=== PATIENT | female | born 1935 | race Two or more races ===

== ENCOUNTER → 2018-10-18 | Emergency (ER) | payer OTHER ==
[~2018-10-18] VITALS: Ht 157.5 cm; Wt 49.9 kg
[~2018-10-18] MED LIST: ARICEPT5 MG; COZAAR25 MG; DITROPAN5 MG; HYZAAR 100-121 UDTAB; HYZAAR 100-121 UDTAB PO; INTESTINEX1 CA1 PO; LIPITOR20 MG PO; Neurontin PO; PREVACID15 MG
== END | disposition home or self-care (01) ==
LOC: ER 19:04
DX: M54.31 Sciatica, right side (principal)

== ENCOUNTER 2023-04-14 21:58 | Inpatient (IN) | payer OTHER ==
[~2023-04-14] VITALS: Ht 129.5 cm; Wt 86.2 kg
[2023-04-14] MEDS ORDERED: LOSARTAN POTAS100 MG PO (22:23)
[2023-04-14] MEDS ORDERED: ARICEPT5 MG PO (22:24)
[2023-04-14] MEDS ORDERED: HYDROCHLOROTH12.5 MG PO (22:24)
[2023-04-14] MEDS ORDERED: MEMANTINE HCL E14 MG PO (22:24)
[2023-04-14] MEDS ORDERED: PROBIOTIC1 EAC2 (22:25)
[2023-04-14] MEDS ORDERED: LIPITOR20 MG PO (22:25)
[2023-04-14] MEDS ORDERED: NEURONTIN300 MG (22:25)
--- NOTE | 2023-04-14 22:26 | NUR ---
SE RECIBE PTE ALERTA Y ORIENTADA X3. SE OBSERVA A PTE CON ROBERT POR DIAGNOSTICO DE VEJIGA NEUROGENICA. FAMILIAR REFIERE QUE DESDE EL JUEVES PTE CRAIN TENIDO HECES DE COLOR NEGRAS Y CON MUY MAL OLOR, TOS PRODUCTIVA CON ESPUTO CON DWAIN. SE MONITOREAN S/V Y SE UBICA EN JOSE EDUARDO DE OBSERVACION.
--- NOTE | 2023-04-15 00:10 | NUR ---
SE ORIENTA PTE SOBRE TX A SEGUIR, LA MISMA REFIERE ENTENDER. SE PETRA MUESTRAS DE LAB, SE CANALIZA Y SE ADMINISTRA MEDS ARMANI ORDEN MEDICA. PEND U/A Y OCULT BLOOD
--- NOTE | 2023-04-15 07:24 | NUR ---
SE RECIBE PTE ALERTA Y ORIETNADO POR 3 EN COMPANIA DE YOUNGER FAMILIRA PTE UBICADA EN CAMA CON BRANDAS ELEVADA TIEMBRE ACCESIBLE, NO PRESENTA DOLOR NI SANGRADO AL MOMENTO, SE OBSERVA VENOPUNCION PATENTE Y CHRISTIN DE EDEMA, PTE SE MANTIENE EN OBSERVACION Y BAJO TRATAMIENTO EN ESEPERA DEL DE NETTE GUIDO.
[2023-04-20] MEDS ORDERED: GABAPENTIN300 MG PO (16:21)
[2023-04-20] MEDS ORDERED: PYRIDOXINE HCL100 MG PO (16:21)
[2023-04-20] MEDS ORDERED: FOLIC ACID1 MG PO (16:21)
[2023-04-20] MEDS ORDERED: LIPITOR20 MG PO (16:21)
[2023-04-20] MEDS ORDERED: Neurin-Sl Tablet Sl SL (16:21)
[2023-04-20] MEDS ORDERED: POM (MEDICAMENTO EN PO (16:21)
[2023-04-20] MEDS ORDERED: ARICEPT5 MG PO (16:21)
[2023-04-20] MEDS ORDERED: INTEGRA PLUS C1 EACH PO (16:21)
[2023-04-20] MEDS ORDERED: PROTONIX40 MG PO (16:21)
== END 2023-04-21 06:54 | disposition home or self-care (01) | DRG 378 ==
LOC: ER 21:58 → MEDJ 04-15 15:28
PROVIDERS: ADMIT Internal Medicine; ATTEND Internal Medicine
PROC: 0DJ08ZZ Inspection of Upper Intestinal Tract, Via Natural or Artificial Opening Endoscopic (ICD-10-PCS; principal; 2023-04-18)
PROC: 30233N1 Transfusion of Nonautologous Red Blood Cells into Peripheral Vein, Percutaneous Approach (ICD-10-PCS; 2023-04-19)
DX: K92.1 Melena (principal); N17.8 Other acute kidney failure; N39.0 Urinary tract infection, site not specified; K21.00 Gastro-esophageal reflux disease with esophagitis, without bleeding; K44.9 Diaphragmatic hernia without obstruction or gangrene; K26.9 Duodenal ulcer, unspecified as acute or chronic, without hemorrhage or perforation; K29.80 Duodenitis without bleeding; D64.89 Other specified anemias; E86.0 Dehydration; I10 Essential (primary) hypertension; N31.8 Other neuromuscular dysfunction of bladder; G30.0 Alzheimer's disease with early onset; F02.80 Dementia in other diseases classified elsewhere, unspecified severity, without behavioral disturbance, psychotic disturbance, mood disturbance, and anxiety

== ENCOUNTER 2023-04-25 11:49 | Inpatient (IN) | payer OTHER ==
[~2023-04-25] VITALS: Ht 152.4 cm; Wt 83.9 kg
[~2023-04-25 11:49] MED LIST changes: +ARICEPT5 MG PO; +FOLIC ACID1 MG PO; +GABAPENTIN300 MG PO; +HYDROCHLOROTH12.5 MG PO; +INTEGRA PLUS C1 EACH PO; +LOSARTAN POTAS100 MG PO; +MEMANTINE HCL E14 MG PO; +NEURONTIN300 MG; +Neurin-Sl Tablet Sl SL; +POM (MEDICAMENTO EN PO; +PROBIOTIC1 EAC2; +PROTONIX40 MG PO; +PYRIDOXINE HCL100 MG PO
[2023-05-07] MEDS ORDERED: DULCOLAX5 MG PO (16:47)
[2023-05-07] MEDS ORDERED: INTESTINEX680 M1 PO (16:47)
[2023-05-07] MEDS ORDERED: PANTOPRAZOLE SO40 MG PO (16:47)
[2023-05-07] MEDS ORDERED: ELIQUIS2.5 MG PO (16:47)
== END 2023-05-07 17:55 | disposition home or self-care (01) | DRG 871 ==
LOC: ER 11:49 → MEDJ 19:00 → ICU-2 19:00 → ICU 04-26 02:17 → MEDJ 04-30 20:47
PROVIDERS: General Practice; Internal Medicine; Internal Medicine Hematology & Oncology; ADMIT Internal Medicine; ATTEND Internal Medicine
PROC: BW24ZZZ Computerized Tomography (CT Scan) of Chest and Abdomen (ICD-10-PCS; 2023-04-25)
PROC: BW21ZZZ Computerized Tomography (CT Scan) of Abdomen and Pelvis (ICD-10-PCS; 2023-04-25)
PROC: B24BZZZ Ultrasonography of Heart with Aorta (ICD-10-PCS; 2023-04-25)
PROC: 02HV33Z Insertion of Infusion Device into Superior Vena Cava, Percutaneous Approach (ICD-10-PCS; 2023-04-26)
PROC: 0W993ZZ Drainage of Right Pleural Cavity, Percutaneous Approach (ICD-10-PCS; principal; 2023-04-27)
PROC: BW24YZZ Computerized Tomography (CT Scan) of Chest and Abdomen using Other Contrast (ICD-10-PCS; 2023-04-27)
PROC: B54DZZZ Ultrasonography of Bilateral Lower Extremity Veins (ICD-10-PCS; 2023-04-28)
PROC: 4A12X4Z Monitoring of Cardiac Electrical Activity, External Approach (ICD-10-PCS; 2023-04-30)
DX: A41.9 Sepsis, unspecified organism (principal); I26.99 Other pulmonary embolism without acute cor pulmonale; J18.9 Pneumonia, unspecified organism; N39.0 Urinary tract infection, site not specified; D62 Acute posthemorrhagic anemia; J90 Pleural effusion, not elsewhere classified; E87.6 Hypokalemia; K44.9 Diaphragmatic hernia without obstruction or gangrene; N31.9 Neuromuscular dysfunction of bladder, unspecified; E86.0 Dehydration; Z74.01 Bed confinement status; K57.30 Diverticulosis of large intestine without perforation or abscess without bleeding; G30.9 Alzheimer's disease, unspecified; F02.80 Dementia in other diseases classified elsewhere, unspecified severity, without behavioral disturbance, psychotic disturbance, mood disturbance, and anxiety
CPT/HCPCS: 71275

== ENCOUNTER 2025-07-15 16:37 | Inpatient (IN) | payer OTHER ==
[~2025-07-15] VITALS: Ht 157.5 cm; Wt 62.1 kg
[~2025-07-15 16:37] MED LIST changes: +DULCOLAX5 MG PO; +ELIQUIS2.5 MG PO; +INTESTINEX680 M1 PO; +PANTOPRAZOLE SO40 MG PO
--- NOTE | 2025-07-15 17:17 | NUR ---
SE RECIBE PACIENTE QUE LLEGA EN AMBULANCIA Y REFIEREN PARAMEDICOS QUE LLAMARON DEBIDO A QUE ESTABA LETARGICA Y CON DIFICULTAD RESPIRATORIA. PACIENTE NO CANALIZADA, AL MOMENTO DE REALIZAR TRIAGE LE HABIAN D/C CANULA NASAL DEBIDO A QUE PACIENTE ESTABA SATURANDO 97%. SE MIDEN Y DOCUMENTAN S/V, SATURANDO 98%, CHRISTIN DE DIFICULTAD RESPIRATORIA, PACIENTE RESPONDE AL SER LLAMADA SONRIENDO. FAMILIAR REFIERE JUAN F DE LIN PRESENTO DOLOR ABDOMINAL. PACIENTE CON ROBERT NO PATENTE QUE REFIERE FAMILIAR SERIA CAMBIADO EN EL HOGAR DEBIDO A QUE ORINA SE SALIA, SE ONSERVA BOLSA DE ROBERT CON SEDIMIENTOS Y MUY POCO EGRESO URINARIO. SE NOTIFICA A DRA HAN QUIEN INDICA COLOCAR EN AREA DE SECC K EN MONITOR CARDIACO SE CONECTA A MONITOR CON SATUROMETRIA,BARANDAS ELEVADAS POR YOUNGER SEGURIDAD. PACIENTE SATURANDO 99% CON BUEN PATRON RESPIRATORIO AL MOMENTO EN AIRE AMBIENTAL. SE MONITOREA POR CAMBIOS SIGNIFICATIVOS.
[2025-07-15] MEDS ORDERED: FOLIC ACID20 MG (17:27)
[2025-07-15] MEDS ORDERED: CRESTOR40 MG PO (17:27)
[2025-07-15] MEDS ORDERED: PIPERACILLIN/TAZOBACTAM SODIUM 3.375 GM VIAL IV SCH (18:00)
[2025-07-15] MEDS ORDERED: FAMOtidine 10 MG/ML (4ML VIAL) IV ONE (18:00)
[2025-07-15] MEDS ORDERED: 0.9 % SODIUM CHLORIDE 1,000 ML IV SCH (18:00)
--- NOTE | 2025-07-15 20:29 | NUR ---
SE ORIENTA A PACIENTE SOBRE ORDEN MEDICA LA MISMA REFIERE ENTENDER Y ACEPTA.
[2025-07-15 20:54] LABS: BASO % 0.2 % (0.1-1.2); EOS # 0.04 (0.04-0.54); EOS % 0.2 % (0.7-7.0); LYMPH # 1.07 (1.18-3.74); LYMPH % 5.2 % (19.3-53.1); MEAN PLATELET VOLUME 9.70 fl (9.4-12.4); MONO # 1.30 (0.24-0.82); MONO % 6.3 % (4.7-12.5); NEUT # 18.03 (1.56-6.13); NEUT % 86.7 % (34.0-71.1); RED CELL DISTRIBUTION WIDTH 13.7 % (11.6-14.4)
[2025-07-15 21:05] LABS: ERYTHROCYTE SEDIMENTATION RATE 24 mm/hr (0-30)
[2025-07-15 21:08] LABS: INR 1.41
[2025-07-15 21:12] LABS: URINE APPEARANCE Turbid; URINE BILIRRUBIN Negative (NEGATIVE); URINE BLOOD Large; URINE COLOR Dark Yellow; URINE GLUCOSE Negative (NEGATIVE); URINE KETONE Trace (NEGATIVE); URINE LEUKOCYTE Large; URINE NITRATE Negative; URINE UROBILINOGEN 0.2 E.U./dl
[2025-07-15 21:13] LABS: URINE CAST 1.75 uL (0.0-1.40); URINE EPITHELIAL CELLS 3.6 uL (0.0-38.8); URINE RBC 1723.9 uL (0.0-20.8); URINE WBC 1179.3 uL (0.0-23.2)
--- NOTE | 2025-07-15 21:16 | NUR ---
SE ORIENTA FAMILIAR DE PACIENTE SOBRE CAMBIO DE SONDA URINARIA, REFIERE ENTENDER. SE USAN MEDIDAS ASEPTICAS Y ESTERILIES PARA COLOCAR ROBERT # 20. PACIENTE DRENANDO ORINA Y PUS AL MOMENTO DE INSERTAR SONDA, SE OBSERVA ORINA DE COLOR CANDACE MAINE ALREDEDOR DE 200 ML AL MOMENTO DE INSERTAR LA MISMA Y CON OLOR FETIDO. SE NOTIFICA A DRA Jose Alberto ALFONSO.
[2025-07-15 21:24] LABS: URINE PROTEIN 300 (NEGATIVE)
[2025-07-15 21:25] LABS: URINE BACTERIA > 9821.5 uL (0.0-1933)
[2025-07-16] VITALS (8 sets, daily range): BP systolic 87–156; BP diastolic 46–60; O2SAT 98–100
[2025-07-16] MEDS ORDERED: LEVALBUTEROL HCL 1.25 MG/3 ML SOLUTION IH SCH (01:00)
[2025-07-16] MEDS ORDERED: DEXTROSE 50 % IN WATER 0.5 G/ML DISP.SYRIN IV PRN (01:00)
[2025-07-16] MEDS ORDERED: INSULIN LISPRO 1,000 UNIT/10 ML UNITS SUBCUTANEO PRN (01:00)
[2025-07-16] MEDS ORDERED: HYDROCORTISONE SODIUM SUCC/PF 200 MG in 0.9 % SODIUM CHLORIDE 250 ML IV SCH (01:00)
[2025-07-16] MEDS ORDERED: NOREPINEPHRINE BITARTRATE 8 MG in DEXTROSE 5 % IN WATER 250 ML IV SCH (01:00)
--- NOTE | 2025-07-16 01:41 | NUR ---
SE RECIBE PACIENTE EN UNIDAD DE CHEST PAIN LETARGICA CON VENTURY MASK Y EXTREMIDADES SUPERIORES E INFERIORES LIBRES DE EDEMA Y ERITEMA CON VENOPUNCION EN BRAZO DERECHO BAJANDO UN .9 A 100 MLS/HR. SE OBSERVA ENROJECIMIENTO EN EL AREA SACRAL. SE PROCEDE A COLOCAR GASAS VACELINADAS DENVER PROFILAXIS. ABDOMEN BLANDO AL TACTO CHRISTIN DE DISTENCION Y DOLOR.
--- NOTE | 2025-07-16 02:32 | NUR ---
SE ORIENTA FAMILIAR SOBRE TX MEDICO Y JACOB REFIERE ENTENDER Y ACDEPTAR EL MISMO. SE PROCEDE A ADMINISTRAR MEDICAMENTO ARMANI ORDEN MEDICA BAJO MEDIDAS ASEPTICAS.
--- NOTE | 2025-07-16 04:34 | NUR ---
SE P[ROCEDE A GARRY MUESTRAS DE LAB BAJO MEDIDAS ASEPTICAS. SE PROCEDE A CANALIZAR PACIENMTE BAJO MEDIDAS ASEPTICAS. LIBRES DE EDEMA Y ERITEMA. E PROCEDE A ADMINISTRAR MEDICAMENTO ARMANI ORDEN MEDICA BAJO MEIDDAS ASSEPTICAS.
[2025-07-16 04:35] LABS: ALT/SGPT 49.0 U/L (12-78); AST/SGOT 65.0 U/L (15-37); BILIRUBIN TOTAL 0.73 mg/dL (0.3-1.2); BUN CREA RATIO 24.0 (7.0-25.0); CREATININE SERUM 1.5 mg/dL (0.55-1.02); GFR 32.7; GLOBULINA 3.8 G/DL (2.4-3.5); GLUCOSE FASTING 111.0 mg/dL (65-100); OSMOLALITY SERUM 292.0 MOSM/KG (275-295)
[2025-07-16 05:18] LABS: COVID-19 AG NEGATIVE (NEGATIVE)
--- NOTE | 2025-07-16 07:51 | NUR ---
PACIENTE FEMINA, S/V EN PARAMETROS NORMALES, C/C SEPSIS, SE PETRA SIGNO SVITALES, PACIENTE EN CAMA 18 DE CHEST PAIN, CONECTADA A MONITOR CARDIACO, CON NRB, DRIP 0.9 NSS AT 100, HIDROCORTISOL AT 100, CANALIZADO EN AMBAS DAVIAN, PATENTES CONECTADOS A IV PUMP, SE ENCUENTRA DORMIDA, SE CONTINUA CON TRATAMIENTO.
--- NOTE | 2025-07-16 10:10 | NUR ---
SE RECIBE PACIENTE A LAS 8:40 AM QUE ENTREGA SUP. A OVIEDO. CONTINUA EN NOEMY- TOR, DORMIDA. SE ADMINISTRA MEDICAMENTO CON MEDIDAS ASEPTICAS CORRESPONDIENTES. BARANDAS ELEVADAS POR YOUNGER SEGURIDAD. SE CONTINUA MONITOREANDO POR CAMBIOS SIGNIFICATIVOS.
[2025-07-16] MEDS ORDERED: ONDANSETRON HCL 4 MG in 0.9 % SODIUM CHLORIDE 50 ML IV PRN (13:15)
[2025-07-16] MEDS ORDERED: ACETAMINOPHEN 650 MG SUPP.RECT RECTAL PRN (13:15)
[2025-07-16] MEDS ORDERED: MEROPENEM 500 MG in 0.9 % SODIUM CHLORIDE 50 ML IV SCH (17:00)
[2025-07-16] MEDS ORDERED: PANTOPRAZOLE SODIUM 40 MG/VIAL VIAL IV SCH (21:00)
[2025-07-17] VITALS (9 sets, daily range): BP systolic 104–147; BP diastolic 49–67; O2SAT 93–100
[2025-07-17] MEDS ORDERED: MULTIVIT INFUSN,ADULT 4,VIT K 10 ML VIAL IV SCH (10:28)
[2025-07-17] MEDS ORDERED: LACTOBACILLUS ACIDOPHILUS 1 CAP CAP PO SCH (10:28)
[2025-07-17] MEDS ORDERED: LACTOBACILLUS ACIDOPHILUS 1 CAP CAP PO ONE (17:05)
[2025-07-17 17:42] LABS: BASO % 0.2 % (0.1-1.2); EOS # 0.00 (0.04-0.54); EOS % 0.0 % (0.7-7.0); LYMPH # 1.20 (1.18-3.74); LYMPH % 4.9 % (19.3-53.1); MEAN PLATELET VOLUME 10.10 fl (9.4-12.4); MONO # 1.05 (0.24-0.82); MONO % 4.3 % (4.7-12.5); NEUT # 21.80 (1.56-6.13); NEUT % 89.5 % (34.0-71.1); RED CELL DISTRIBUTION WIDTH 13.7 % (11.6-14.4)
[2025-07-17 17:50] LABS: ERYTHROCYTE SEDIMENTATION RATE 76 mm/hr (0-30)
[2025-07-17 18:51] LABS: ALT/SGPT 37.0 U/L (12-78); AST/SGOT 48.0 U/L (15-37); BILIRUBIN TOTAL 0.43 mg/dL (0.3-1.2); BUN CREA RATIO 32.0 (7.0-25.0); CREATININE SERUM 0.78 mg/dL (0.55-1.02); GFR 69.54; GLOBULINA 2.8 G/DL (2.4-3.5); GLUCOSE FASTING 111.0 mg/dL (65-100); OSMOLALITY SERUM 292.0 MOSM/KG (275-295)
[2025-07-17] MEDS ORDERED: POTASSIUM CHLORIDE IN WATER 40 MEQ/100 ML PIGGYBAG IV SCH (19:30)
[2025-07-17] MEDS ORDERED: MAGNESIUM SULFATE 50% 1,000 MG/2 ML VIAL IV ONE (19:30)
[2025-07-18 03:36] VITALS: BP 130/69; O2SAT 95
[2025-07-18] MEDS ORDERED: POTASSIUM CHLORIDE 20MEQ/100ML H2O PB IV ONE (05:13)
[2025-07-18 08:02] LABS: CHOL HDL RATIO 3.7 (0-5.0); HDL 35.0 mg/dl (40-60); LDL 74.0 mg/dl (0-130); T4 FREE 0.78 NG/ML (0.76-1.46); TSH 0.595 uIU/mL (0.358-3.74); VLDL 19.0 (0-39)
[2025-07-18 08:33] VITALS: BP 160/78; O2SAT 97
[2025-07-18] MEDS ORDERED: MEROPENEM 500 MG in 0.9 % SODIUM CHLORIDE 50 ML IV SCH (09:00)
[2025-07-18 16:54] VITALS: BP 150/75; O2SAT 98
[2025-07-18] MEDS ORDERED: POTASSIUM CHLORIDE IN WATER 100 ML IV STA (17:15)
[2025-07-18] MEDS ORDERED: MAGNESIUM SULFATE 1,000 MG in 0.9 % SODIUM CHLORIDE 50 ML IV ONE (17:15)
[2025-07-19 02:03] VITALS: BP 128/69; O2SAT 96
[2025-07-19 07:59] VITALS: BP 127/57; O2SAT 95
[2025-07-19] MEDS ORDERED: MEROPENEM 500 MG/VIAL VIAL IV ONE (08:20)
[2025-07-19 16:47] VITALS: BP 160/73; O2SAT 100
[2025-07-19] MEDS ORDERED: PREDNISONE 10 MG TABLET PO SCH (17:00)
[2025-07-19] MEDS ORDERED: CEFTRIAXONE SODIUM 2,000 MG VIAL IV SCH (17:00)
[2025-07-20] VITALS (7 sets, daily range): BP systolic 127–169; BP diastolic 59–79; O2SAT 93–96
[2025-07-20 06:09] LABS: LYMPH % 11.8 % (19.3-53.1); MEAN PLATELET VOLUME 10.40 fl (9.4-12.4); NEUT % 73.7 % (34.0-71.1); RED CELL DISTRIBUTION WIDTH 13.8 % (11.6-14.4)
[2025-07-20 06:10] LABS: BASO % 0.2 % (0.1-1.2); EOS # 0.00 (0.04-0.54); EOS % 0.0 % (0.7-7.0); LYMPH # 1.39 (1.18-3.74); MONO # 1.12 (0.24-0.82); MONO % 9.5 % (4.7-12.5); NEUT # 8.66 (1.56-6.13)
[2025-07-20 06:45] LABS: ALT/SGPT 42.0 U/L (12-78); AST/SGOT 25.0 U/L (15-37); BILIRUBIN TOTAL 0.29 mg/dL (0.3-1.2); BUN CREA RATIO 31.0 (7.0-25.0); CREATININE SERUM 0.32 mg/dL (0.55-1.02); GFR 194.43; GLOBULINA 2.4 G/DL (2.4-3.5); GLUCOSE FASTING 94.0 mg/dL (65-100); OSMOLALITY SERUM 291.0 MOSM/KG (275-295)
[2025-07-20 07:24] LABS: BAND MAN 6.0 %; LYMPHOCYTE MAN 11.0 %; MONOCYTE MAN 6.0 %; NEUTROPHILS MAN 76.0 %
[2025-07-20] MEDS ORDERED: PREDNISONE 10 MG TABLET PO SCH (09:00)
[2025-07-20] MEDS ORDERED: LINEZOLID 600 MG TABLET PO SCH (09:00)
[2025-07-20] MEDS ORDERED: POTASSIUM CHLORIDE IN WATER 40 MEQ/100 ML PIGGYBAG IV NR (10:00)
[2025-07-21] VITALS (9 sets, daily range): BP systolic 87–159; BP diastolic 51–74; O2SAT 94–99
[2025-07-21] MEDS ORDERED: PREDNISONE 10 MG TABLET PO SCH (09:00)
[2025-07-21] MEDS ORDERED: POTASSIUM BICARBONATE/CIT AC 25 MEQ TABLET.EFF PO SCH (21:00)
[2025-07-22] VITALS (9 sets, daily range): BP systolic 114–144; BP diastolic 63–78; O2SAT 90–98
[2025-07-22] MEDS ORDERED: PREDNISONE 10 MG TABLET PO SCH (09:00)
[2025-07-22 14:37] LABS: BUN CREA RATIO 12.0 (7.0-25.0); CREATININE SERUM 0.58 mg/dL (0.55-1.02); GFR 97.88; GLUCOSE FASTING 110.0 mg/dL (65-100); OSMOLALITY SERUM 280.0 MOSM/KG (275-295)
[2025-07-22] MEDS ORDERED: PREDNISONE 5 MG TABLET PO SCH (17:00)
[2025-07-23] VITALS (9 sets, daily range): BP systolic 124–147; BP diastolic 60–62; O2SAT 95–99
[2025-07-23] MEDS ORDERED: PREDNISONE 5 MG TABLET PO SCH (09:00)
[2025-07-23] MEDS ORDERED: MAGNESIUM SULFATE IN WATER 50 ML IV NR (13:00)
[2025-07-23] MEDS ORDERED: PREDNISONE 1 MG TABLET PO SCH ×2 (17:00)
[2025-07-23] MEDS ORDERED: POTASSIUM PHOS,M-BASIC-D-BASIC 15 MM in 0.9 % SODIUM CHLORIDE 250 ML IV NR (18:15)
[2025-07-24] VITALS (9 sets, daily range): BP systolic 139–155; BP diastolic 66–77; O2SAT 90–99
[2025-07-24 04:42] LABS: BASO % 0.1 % (0.1-1.2); EOS # 0.08 (0.04-0.54); EOS % 0.6 % (0.7-7.0); LYMPH # 2.35 (1.18-3.74); LYMPH % 16.5 % (19.3-53.1); MEAN PLATELET VOLUME 9.10 fl (9.4-12.4); MONO # 0.68 (0.24-0.82); MONO % 4.8 % (4.7-12.5); NEUT # 10.88 (1.56-6.13); NEUT % 76.3 % (34.0-71.1); RED CELL DISTRIBUTION WIDTH 13.8 % (11.6-14.4)
[2025-07-24 05:11] LABS: BUN CREA RATIO 12.0 (7.0-25.0); GFR 118.91; GLUCOSE FASTING 94.0 mg/dL (65-100); OSMOLALITY SERUM 273.0 MOSM/KG (275-295)
[2025-07-24 05:12] LABS: CREATININE SERUM 0.49 mg/dL (0.55-1.02)
[2025-07-25 03:10] VITALS: BP 137/73; O2SAT 97
[2025-07-25 04:00] VITALS: O2SAT 99
[2025-07-25] MEDS ORDERED: PREDNISONE 1 MG TABLET PO STA (09:33)
[2025-07-25 11:05] VITALS: BP 133/67; O2SAT 97
[2025-07-25] MEDS ORDERED: TRIAMCINOLONE ACETONIDE 5 GM TUBE TOP SCH (14:00)
[2025-07-25 16:42] VITALS: O2SAT 100
[2025-07-25] MEDS ORDERED: CLOTRIMAZOLE 10 MG TROCHE MM SCH (17:00)
[2025-07-25 18:10] VITALS: BP 123/70
[2025-07-25 21:27] VITALS: O2SAT 99
[2025-07-26] VITALS (9 sets, daily range): BP systolic 114–143; BP diastolic 71–74; O2SAT 90–100
[2025-07-26] MEDS ORDERED: PREDNISONE 1 MG TABLET PO SCH (09:00)
[2025-07-26] MEDS ORDERED: PANTOPRAZOLE SODIUM 40 MG TABLET.DR PO SCH (21:00)
[2025-07-27] VITALS (9 sets, daily range): BP systolic 146–159; BP diastolic 60–67; O2SAT 95–100
[2025-07-27 05:37] LABS: BASO % 0.3 % (0.1-1.2); EOS # 0.04 (0.04-0.54); EOS % 0.4 % (0.7-7.0); LYMPH # 1.70 (1.18-3.74); LYMPH % 14.9 % (19.3-53.1); MEAN PLATELET VOLUME 8.70 fl (9.4-12.4); MONO # 0.79 (0.24-0.82); MONO % 6.9 % (4.7-12.5); NEUT # 8.77 (1.56-6.13); NEUT % 77.0 % (34.0-71.1); RED CELL DISTRIBUTION WIDTH 13.5 % (11.6-14.4)
[2025-07-28 03:07] VITALS: BP 139/69; O2SAT 97
[2025-07-28 09:28] VITALS: O2SAT 100
[2025-07-28 09:42] VITALS: BP 126/69; O2SAT 98
[2025-07-28 13:00] VITALS: O2SAT 97
[2025-07-28] MEDS ORDERED: LINEZOLID600 MG PO (13:02)
[2025-07-28] MEDS ORDERED: INTESTINEX680 M1 PO (13:02)
[2025-07-28] MEDS ORDERED: LEVOFLOXACIN750 MG PO (13:02)
[2025-07-28] MEDS ORDERED: CLOTRIMAZOLE10 MG MM (13:02)
== END 2025-07-28 16:00 | disposition home or self-care (01) | DRG 872 ==
LOC: ER 16:37 → MEDI 07-16 18:42 → ICU-2 07-16 18:42 → MEDI 07-17 19:01
PROVIDERS: General Practice; Internal Medicine Infectious Disease; Internal Medicine Nephrology; Student in an Organized Health Care Education/Training Program; ADMIT Internal Medicine; ATTEND Internal Medicine
PROC: BW21ZZZ Computerized Tomography (CT Scan) of Abdomen and Pelvis (ICD-10-PCS; principal; 2025-07-15)
PROC: BB24ZZZ Computerized Tomography (CT Scan) of Bilateral Lungs (ICD-10-PCS; 2025-07-15)
PROC: BW28ZZZ Computerized Tomography (CT Scan) of Head (ICD-10-PCS; 2025-07-15)
PROC: B246ZZZ Ultrasonography of Right and Left Heart (ICD-10-PCS; 2025-07-17)
PROC: 3E0F7GC Introduction of Other Therapeutic Substance into Respiratory Tract, Via Natural or Artificial Opening (ICD-10-PCS; 2025-07-17)
PROC: 4A12X4Z Monitoring of Cardiac Electrical Activity, External Approach (ICD-10-PCS; 2025-07-20)
DX: A41.9 Sepsis, unspecified organism (principal); N39.0 Urinary tract infection, site not specified; N17.8 Other acute kidney failure; E87.0 Hyperosmolality and hypernatremia; L03.114 Cellulitis of left upper limb; B96.4 Proteus (mirabilis) (morganii) as the cause of diseases classified elsewhere; I95.9 Hypotension, unspecified; E86.0 Dehydration; F03.90 Unspecified dementia, unspecified severity, without behavioral disturbance, psychotic disturbance, mood disturbance, and anxiety; I10 Essential (primary) hypertension; E83.42 Hypomagnesemia